=== PATIENT | male | born 1965 | race Caucasian/White ===

== ENCOUNTER 2018-12-22 14:52 | Emergency (ER) | payer BC ==
[~2018-12-22] VITALS: Ht 170.2 cm; Wt 84.4 kg
[2018-12-22 16:55] LABS: Alkaline Phosphatase 729 U/L (45-117); Anion Gap 22 (5-15); Aspartate Aminotransferase 1110 U/L (15-37); BUN/Creatinine Ratio 16.8; Blood Urea Nitrogen 23 mg/dL (7-18); Carbon Dioxide 15 mmol/L (21-32); Chloride 89 mmol/L (98-107); GFR African American 70 mL/min; GFR Non-African American 58 mL/min; Glucose 362 mg/dL (74-106); Potassium 4.4 mmol/L (3.5-5.1); Sodium 126 mmol/L (136-145)
[2018-12-22 16:56] LABS: Alanine Aminotransferase 1103 U/L (16-61); Albumin 3.4 g/dL (3.4-5.0); Amylase 17 U/L (25-115); Bilirubin, Total 13.4 mg/dL (0.2-1.0); Calcium 9.4 mg/dL (8.5-10.1); Lipase 176 U/L (73-393); Total Protein 7.3 g/dL (6.4-8.2)
[2018-12-22 17:18] LABS: Basophils # (auto) 0 uL; Basophils % (auto) 0.6 % (0.0-2.0); Eosinophils # (auto) 0 uL; Eosinophils % (auto) 0.2 % (0.0-7.0); Hematocrit 48.3 % (41.0-53.0); Lymphocytes # (auto) 1.1 uL; Lymphocytes % (auto) 13.3 % (10.0-50.0); Mean Corpuscular Hemoglobin 29.5 pg (28.0-32.0); Mean Corpuscular Hgb Conc. 33.1 g/dL (32.0-36.0); Mean Corpuscular Volume 89.1 fL (80.0-100.0); Monocytes # (auto) 1.3 uL; Monocytes % (auto) 15.9 % (0.0-12.0); Neutrophils # (auto) 5.8 uL; Red Blood Cells 5.42 10^6/uL (4.5-5.90); White Blood Cell 8.3 10^3/uL (4.4-10.8)
[2018-12-22 17:19] LABS: Platelet Count (auto) 227 10^3/uL (140-450)
[2018-12-22] MEDS ORDERED: SODIUM CHLORIDE 0.9% 500 ML IV ONE (21:15)
[2018-12-22 22:04] VITALS: BP 135/58
[2018-12-22 22:42] LABS: INR 0.93 (0.9-1.15); Partial Thromboplastin Time 28.9 sec (23.78-33.04)
== END 2018-12-22 23:01 | disposition short-term general hospital (02) ==
LOC: ER 15:03
DX: K72.90 Hepatic failure, unspecified without coma (principal); E11.9 Type 2 diabetes mellitus without complications; I10 Essential (primary) hypertension; Z90.410 Acquired total absence of pancreas; Z90.49 Acquired absence of other specified parts of digestive tract
CPT/HCPCS: 36415; 71046; 74176; 80053; 82140; 82150; 82962; 83690; 84484; 85025; 85610; 85730; 93005; 94761; 96360